=== PATIENT | female | born 1945 | race Caucasian/White ===

== ENCOUNTER 2024-12-16 09:57 | Outpatient (CLI) | payer MEDICARE ==
[2024-12-16 10:49] LABS: Estimated GFR - POC 47.0
== END 2024-12-16 09:58 | disposition home or self-care (01) ==
LOC: CSHMRI 09:57
PROVIDERS: ATTEND Internal Medicine
DX: R79.89 Other specified abnormal findings of blood chemistry (principal); R13.10 Dysphagia, unspecified; R93.3 Abnormal findings on diagnostic imaging of other parts of digestive tract; N28.1 Cyst of kidney, acquired; R18.8 Other ascites; K76.0 Fatty (change of) liver, not elsewhere classified
CPT/HCPCS: 36415; 74183; 82565